=== PATIENT | male | born 1955 | race African-American/Black ===

== ENCOUNTER 2019-04-13 11:53 | Inpatient (IN) | payer OTHER ==
[~2019-04-13] VITALS: Ht 170.2 cm; Wt 67.2 kg
[2019-04-13] MEDS ORDERED: SODIUM CHLORIDE 0.9% 1,000 ML IV ONE (13:33)
[2019-04-13 14:23] LABS: BASOPHILS % 0.5 % (0.0-2.0); EOSINOPHILS % 1.4 % (0.0-5.0); HEMATOCRIT. 36.8 % (42.0-52.0); HEMOGLOBIN. 12.7 g/dL (14.0-18.0); LYMPHOCYTES % 13.5 % (20.0-50.0); MEAN CORPUSCULAR HEMOGLOBIN 32.3 pg (28.0-32.0); MEAN CORPUSCULAR VOLUME 93.5 fL (80.0-94.0); MEAN PLATELET VOLUME 10.1 fl (7.4-10.4); MONOCYTES % 8.3 % (2.0-8.0); NEUTROPHILS % 76.3 % (40.0-76.0); PLATELET 158 x1000/uL (130-400); RED BLOOD CELL COUNT 3.94 mill/uL (4.7-6.1); RED CELL DISTRIBUTION WIDTH 12.1 % (11.6-14.6)
[2019-04-13 14:31] LABS: CHLORIDE 105 mEq/L (98-107)
[2019-04-13] MEDS ORDERED: POTASSIUM CHLORIDE 20MEQ TABLET SR PO ONE (15:00)
[2019-04-13] MEDS ORDERED: KCL 20MEQ/100ML PREMIX 100 ML IV ONE (15:00)
[2019-04-13] MEDS ORDERED: MAGNESIUM 2 G PREMIX 50 ML IV ONE (15:00)
[2019-04-13 16:04] LABS: CLARITY URINE CLEAR (CLEAR); COLOR URINE YELLOW (YELLOW); KETONES URINE NEGATIVE (NEGATIVE); LEUKOCYTE ESTERASE URINE NEGATIVE (NEGATIVE); NITRITE URINE NEGATIVE (NEGATIVE); OCCULT BLOOD URINE NEGATIVE (NEGATIVE); PROTEIN URINE 1+ (NEGATIVE); SPECIFIC GRAVITY URINE 1.012 (1.005-1.030); UROBILINOGEN URINE 0.2 E.U./dL (0.2-1.0)
[2019-04-13 16:18] LABS: *AMPHETAMINES SCREEN URINE NEGATIVE (NEGATIVE); *BARBITURATES SCREEN URINE NEGATIVE (NEGATIVE); *BENZODIAZEPINES SCREEN URINE NEGATIVE (NEGATIVE); *COCAINE SCREEN URINE NEGATIVE (NEGATIVE)
[2019-04-13 16:19] LABS: CANNABINOID URINE SCREEN NEGATIVE (NEGATIVE); METHADONE URINE SCREEN NEGATIVE (NEGATIVE); OPIATES URINE SCREEN NEGATIVE (NEGATIVE); PHENCYCLIDINE URINE SCREEN NEGATIVE (NEGATIVE)
[2019-04-13 22:00] VITALS: BP 170/104
[2019-04-13 23:00] VITALS: BP 159/89
[2019-04-13] MEDS ORDERED: MAGNESIUM/ALUMINUM HYDROXIDE/SIMETHICONE 30ML UDC PO PRN (23:15)
[2019-04-13] MEDS ORDERED: ACETAMINOPHEN 325MG TABLET PO PRN (23:15)
[2019-04-13] MEDS ORDERED: GUAIFENESIN 200MG/10ML SUGAR FREE UDC PO PRN (23:15)
[2019-04-13] MEDS ORDERED: CLONIDINE 0.1MG TABLET PO PRN (23:15)
[2019-04-13] MEDS ORDERED: ONDANSETRON HCL 4MG/2ML INJ IV PRN (23:15)
[2019-04-13] MEDS ORDERED: DIPHENHYDRAMINE 50MG/ML VIAL IV PRN (23:15)
[2019-04-14] VITALS: BP 172/73
[2019-04-14] MEDS: MVI, ADULT NO.1 10 ML, FOLIC ACID 1 MG, THIAMINE HCL 100 MG in SODIUM CHLORIDE 0.9% 1,0... IV SCH ×8 (00:11→05:29)
[2019-04-14] MEDS: POTASSIUM CHLORIDE INJ 40 MEQ in DEXT 5% WATER 250 ML IV NR ×3 (02:45→05:28)
[2019-04-14 04:00] VITALS: BP 163/96
[2019-04-14 08:00] VITALS: BP 128/80
[2019-04-14 08:14] LABS: BASOPHILS % 0.5 % (0.0-2.0); EOSINOPHILS % 2.8 % (0.0-5.0); HEMATOCRIT. 34.9 % (42.0-52.0); HEMOGLOBIN. 12.2 g/dL (14.0-18.0); LYMPHOCYTES % 29.5 % (20.0-50.0); MEAN CORPUSCULAR HEMOGLOBIN 32.4 pg (28.0-32.0); MEAN CORPUSCULAR VOLUME 92.8 fL (80.0-94.0); MEAN PLATELET VOLUME 9.8 fl (7.4-10.4); MONOCYTES % 11.6 % (2.0-8.0); NEUTROPHILS % 55.6 % (40.0-76.0); PLATELET 151 x1000/uL (130-400); RED BLOOD CELL COUNT 3.76 mill/uL (4.7-6.1); RED CELL DISTRIBUTION WIDTH 12.1 % (11.6-14.6)
[2019-04-14 08:21] LABS: CHLORIDE 111 mEq/L (98-107)
[2019-04-14] MEDS ORDERED: POTASSIUM CHLORIDE 20MEQ TABLET SR PO NR ×4 (10:45→13:45)
[2019-04-14 12:00] VITALS: BP 147/89
[2019-04-14 16:00] VITALS: BP 153/68
[2019-04-14 16:44] VITALS: BP 152/75
== END 2019-04-14 17:26 | disposition home or self-care (01) | DRG 74 ==
LOC: ER 11:53 → 7WST 14:48 → EDBEDREQ 14:49 → EDBEDREQTM 14:49 → ENRESERV 20:01 → 7WST 23:00
PROVIDERS: ADMIT Internal Medicine; ATTEND Internal Medicine
DX: G90.8 Other disorders of autonomic nervous system (principal); C61 Malignant neoplasm of prostate; I10 Essential (primary) hypertension; E87.6 Hypokalemia; E78.00 Pure hypercholesterolemia, unspecified; J44.9 Chronic obstructive pulmonary disease, unspecified; I45.10 Unspecified right bundle-branch block; S00.03XA Contusion of scalp, initial encounter; X58.XXXA Exposure to other specified factors, initial encounter; Y93.89 Activity, other specified; Y92.89 Other specified places as the place of occurrence of the external cause; Y99.8 Other external cause status; Z86.73 Personal history of transient ischemic attack (TIA), and cerebral infarction without residual deficits; Z80.8 Family history of malignant neoplasm of other organs or systems
CPT/HCPCS: 36415; 71045; 80048; 80305; 80320; 81003; 83735; 83880; 84484; 93005; 93970; 99291; J3411; J3475; J3480; J3490; J7030; J7060; G0480

== ENCOUNTER 2024-12-08 05:10 | Inpatient (IN) | payer OTHER ==
[~2024-12-08] VITALS: Ht 167.6 cm; Wt 57.2 kg
[~2024-12-08 05:10] MED LIST: ALBU90AE INH; METH32TA2 MT
[2024-12-08 05:45] LABS: BASOPHILS % 0.7 % (0.0-2.0); EOSINOPHILS % 10.1 % (0.0-5.0); HEMATOCRIT. 37.9 % (42.0-52.0); HEMOGLOBIN. 12.6 g/dL (14.0-18.0); LYMPHOCYTES % 12.3 % (20.0-50.0); MEAN PLATELET VOLUME 8.3 fl (7.4-10.4); MONOCYTES % 7.0 % (2.0-8.0); NEUTROPHILS % 69.9 % (40.0-76.0); PLATELET 154 x1000/uL (130-400); RED BLOOD CELL COUNT 3.98 mill/uL (4.7-6.1); RED CELL DISTRIBUTION WIDTH 14.6 % (11.6-14.6)
[2024-12-08] MEDS: IPRATROPIUM BROMIDE (0.02%) 0.5MG/2.5ML NEB HHN SCH (06:14)
[2024-12-08 06:15] VITALS: PULSE 87; RESP 20; O2SAT 97
[2024-12-08] MEDS: ALBUTEROL (0.083%) 2.5MG/3ML NEB HHN SCH (06:15)
[2024-12-08 06:19] LABS: CREATININE 1.5 mg/dL (0.6-1.3)
[2024-12-08 06:20] LABS: UREA NITROGEN BLOOD 21.0 mg/dL (9-23)
[2024-12-08] MEDS: METHYLPREDNISOLONE SOD SUCC 125MG/2ML (ACT-O-VIAL) IV ONE (06:20)
[2024-12-08 06:49] LABS: TROPONIN I HIGH SENSITIVITY 21 ng/L (3.0-53)
[2024-12-08 11:36] VITALS: BP 199/130; PULSE 80; RESP 20; TEMP 36; O2SAT 95
[2024-12-08] MEDS ORDERED: NALOXONE HCL 0.4MG/ML VIAL IV PRN (12:00)
[2024-12-08] MEDS ORDERED: ONDANSETRON HCL 4MG/2ML INJ IV PRN (12:00)
[2024-12-08] MEDS ORDERED: ACETAMINOPHEN 325MG TABLET PO PRN (12:00)
[2024-12-08] MEDS ORDERED: CLONIDINE 0.1MG TABLET PO PRN (12:00)
[2024-12-08] MEDS ORDERED: MORPHINE SULFATE 2 MG/ML INJ (NOT FOR IM USE) IV PRN (12:00)
[2024-12-08] MEDS ORDERED: DOCUSATE SODIUM 100MG CAPSULE PO PRN (12:00)
[2024-12-08] MEDS ORDERED: HYDROCODONE/ACETAMINOPHEN 5/325MG TABLET PO PRN (12:00)
[2024-12-08] MEDS: ENOXAPARIN 40MG/0.4ML SYR SUBCUT SCH (12:02)
[2024-12-08] MEDS: LISINOPRIL 20MG TABLET PO SCH (12:03)
[2024-12-08] MEDS: AMLODIPINE 10MG TABLET PO SCH (12:03)
[2024-12-08 12:08] VITALS: BP 136/92; PULSE 82; RESP 20; TEMP 36.0288
[2024-12-08] MEDS: METOPROLOL TARTRATE 25MG TABLET PO SCH (12:43)
[2024-12-08 16:00] VITALS: BP 121/79; PULSE 69; RESP 18; TEMP 36.7; O2SAT 99
[2024-12-08] MEDS: METHYLPREDNISOLONE SOD SUCC 500 MG in DEXT 5% WATER 100 ML IV SCH (17:22)
[2024-12-08 18:40] LABS: CREATINE KINASE MB FRACTION 10.3 ng/mL (0.5-3.6); TROPONIN I HIGH SENSITIVITY 34.0 ng/L (3.0-53)
[2024-12-08 19:16] LABS: HEPATITIS C AB NON REACTIVE (Neg) (Negative)
[2024-12-08 20:00] VITALS: BP 124/82; PULSE 73; RESP 17; TEMP 36.8; O2SAT 98
[2024-12-08 20:01] LABS: CLARITY URINE CLEAR (CLEAR); COLOR URINE YELLOW (YELLOW); GLUCOSE URINE 1+ (NEGATIVE); KETONES URINE NEGATIVE (NEGATIVE); LEUKOCYTE ESTERASE URINE NEGATIVE (NEGATIVE); NITRITE URINE NEGATIVE (NEGATIVE); OCCULT BLOOD URINE NEGATIVE (NEGATIVE); PH URINE 7.0 (4.5-8.0); PROTEIN URINE NEGATIVE (NEGATIVE); SPECIFIC GRAVITY URINE 1.013 (1.005-1.030); UROBILINOGEN URINE 0.2 E.U./dL (0.2-1.0)
[2024-12-08 20:08] LABS: *AMPHETAMINES SCREEN URINE NEGATIVE (NEGATIVE); *BARBITURATES SCREEN URINE NEGATIVE (NEGATIVE); *BENZODIAZEPINES SCREEN URINE NEGATIVE (NEGATIVE); *COCAINE SCREEN URINE NEGATIVE (NEGATIVE); CANNABINOID URINE SCREEN NEGATIVE (NEGATIVE); ECSTASY MDMA SCREEN URINE NEGATIVE (NEGATIVE); METHADONE URINE SCREEN NEGATIVE (NEGATIVE); OPIATES URINE SCREEN NEGATIVE (NEGATIVE); PHENCYCLIDINE URINE SCREEN NEGATIVE (NEGATIVE)
[2024-12-08 20:15] LABS: BACTERIA URINE NONE SEEN; RBC URINE 0-2 /hpf (0-2); SQUAMOUS EPITHELIAL CELL URINE RARE /lpf (RARE/1+); WBC URINE 0-2 /hpf (0-2)
[2024-12-09] VITALS: PULSE 68; RESP 18; TEMP 36.3; O2SAT 99
[2024-12-09 00:43] LABS: CREATINE KINASE MB FRACTION 12.5 ng/mL (0.5-3.6); TROPONIN I HIGH SENSITIVITY 26.0 ng/L (3.0-53)
[2024-12-09 04:00] VITALS: BP 123/90; PULSE 68; RESP 18; TEMP 36.4; O2SAT 96
[2024-12-09 08:00] VITALS: BP 118/79; PULSE 63; RESP 16; TEMP 36.8; O2SAT 97
[2024-12-09] MEDS: FOLIC ACID 1MG TABLET PO SCH (08:30)
[2024-12-09] MEDS: ASPIRIN 81MG EC TABLET PO SCH (08:31)
[2024-12-09 09:18] LABS: HEMATOCRIT. 36.8 % (42.0-52.0); HEMOGLOBIN. 12.5 g/dL (14.0-18.0); MEAN PLATELET VOLUME 9.7 fl (7.4-10.4); PLATELET 157 x1000/uL (130-400); RED BLOOD CELL COUNT 3.90 mill/uL (4.7-6.1); RED CELL DISTRIBUTION WIDTH 14.4 % (11.6-14.6)
[2024-12-09 09:47] LABS: CREATININE 1.3 mg/dL (0.6-1.3); UREA NITROGEN BLOOD 22 mg/dL (9-23)
[2024-12-09 09:49] LABS: PHOSPHORUS 3.4 mg/dL (2.5-4.9)
[2024-12-09 12:00] VITALS: BP 109/77; PULSE 69; RESP 16; TEMP 36.8; O2SAT 100
[2024-12-09 14:43] LABS: LYMPHOCYTES % MANUAL 6.0 % (20.0-50.0); MONOCYTES % MANUAL 3.0 % (2.0-8.0); NEUTROPHILS % MANUAL 91.0 % (45.0-75.0); PLATELET ESTIMATE NORMAL
[2024-12-09 16:00] VITALS: BP 126/86; PULSE 73; RESP 20; TEMP 36.6; O2SAT 97
[2024-12-09 20:00] VITALS: BP 112/79; PULSE 73; RESP 16; TEMP 36.4; O2SAT 99
[2024-12-09] MEDS ORDERED: METH4TAB3 MT (22:03)
[2024-12-09] MEDS ORDERED: IPRATROPIUM/ALBUTEROL 0.5-3(2.5)MG/3ML NEB HHN PRN (22:15)
[2024-12-10] VITALS (8 sets, daily range): BP systolic 112–130; BP diastolic 74–89; PULSE 61–75; RESP 16–20; TEMP 36.1–36.7; O2SAT 97–100
[2024-12-10] MEDS: PREDNISONE 20MG TABLET PO SCH (09:15)
[2024-12-10] MEDS: IPRATROPIUM/ALBUTEROL 0.5-3(2.5)MG/3ML NEB HHN SCH (09:48)
[2024-12-10] MEDS ORDERED: METH4TAB17 MT (14:51)
== END 2024-12-10 18:57 | disposition home or self-care (01) | DRG 189 ==
LOC: ER 05:10 → 5WST 07:25 → EDBEDREQ 07:41 → EDBEDREQTM 07:41
PROVIDERS: ADMIT Internal Medicine Nephrology; ATTEND Internal Medicine Nephrology
DX: J96.01 Acute respiratory failure with hypoxia (principal); J44.1 Chronic obstructive pulmonary disease with (acute) exacerbation; I10 Essential (primary) hypertension; R63.4 Abnormal weight loss; Z79.899 Other long term (current) drug therapy; Z68.20 Body mass index [BMI] 20.0-20.9, adult
CPT/HCPCS: 36415; 71045; 80048; 80305; 81003; 82550; 82553; 83735; 84100; 84484; 85025; 86705; 87340; 93005; 94070; 94640; 94664; 98960; 99285; J1650; J2919; J2930; J7060; J7512